=== PATIENT | male | born 1970 | race Caucasian/White ===

== ENCOUNTER 2019-04-27 08:41 | Emergency (ER) | payer BC ==
--- NOTE | 2019-04-27 08:50 | ED ---
HPI Chest Pain - HPI Summary HPI Summary: 48-year-old male with no significant past medical history presents to the emergency department today complaining of near syncope while working out this morning. Patient states he has not worked out in a "long time" and after working out he felt lightheaded, nauseous, diaphoretic and feeling like he was going to pass out. Patient states he has mild right anterior chest pain which he attributes to muscle soreness rather than an TX. Patient states his father recently had a bypass for myocardial infarction. Patient states the previous week he has felt unwell and more fatigued than usual. Upon arrival to the ER patient feels much better and denies current chest pain. [id number] blood glucose done by EMS was 150. Patient has never had chest pain like this before. Patient denies recent recreational drug use or alcohol use. Patient denies fever, abdominal pain, rash, shortness of breath. Family history and surgical history noncontributory. - History of Current Complaint Time Seen by Provider: 04/27/19 08:43 Hx Obtained From: Patient Timing: Intermittent Initial Severity: Moderate Current Severity: Moderate Chest Pain Location: Right Anterior Chest Pain Radiates: No Character: Dull/Aching Aggravating Factor(s): Exertion Associated Signs and Symptoms: Positive: Chest Pain, Anxiety, Recent Stress, Weakness, Dizziness, Shortness of Breath, Lightheadedness, Diaphoresis, Nausea - Allergy/Home Medications Allergies/Adverse Reactions: Allergies Allergy/AdvReac Type Severity Reaction Status Date / Time Penicillins Allergy See Comment Verified 04/27/19 09:39 Home Medications: Home Medications Ibuprofen TAB* [Advil TAB*] 200 mg PO Q6H PRN 04/27/19 [History Confirmed ] Review of Systems Positive: Fatigue. Negative: Fever, Chills Eyes: Negative ENT: Negative Positive: Chest Pain. Negative: Palpitations Positive: Shortness Of Breath Positive: Nausea. Negative: Abdominal Pain, Vomiting, Diarrhea Genitourinary: Negative Positive: Myalgia Skin: Negative Neurological: Negative Psychological: Normal All Other Systems Reviewed And Are Negative: Yes Physical Exam Triage Information Reviewed: Yes Vital Signs Reviewed: Yes Appearance: Positive: Well-Appearing, No Pain Distress, Well-Nourished Skin: Positive: Warm, Skin Color Reflects Adequate Perfusion Eyes: Positive: EOMI, JACK ENT: Positive: Normal ENT inspection, Hearing grossly normal Respiratory/Lung Sounds: Positive: Clear to Auscultation, Breath Sounds Present Cardiovascular: Positive: RRR, S1, S2 Abdomen Description: Positive: Nontender, Soft Bowel Sounds: Positive: Present Musculoskeletal: Positive: Strength/ROM Intact Neurological: Positive: Sensory/Motor Intact, Alert, Oriented to Person Place, Time, Normal Gait, Speech Normal Psychiatric: Positive: Normal, Affect/Mood Appropriate AVPU Assessment: Alert Procedures - Sedation Patient Received Moderate/Deep Sedation with Procedure: No Diagnostics - Laboratory Result Diagrams: 04/27/19 08:51 04/27/19 08:51 Lab Statement: Any lab studies that have been ordered have been reviewed, and results considered in the medical decision making process. Chest Pain Course/Dx - Course Course Of Treatment: Patient was evaluated in the emergency department today for chest pain. Patient was seen and evaluated his vitals are stable. EKG was done promptly which shows normal sinus rhythm at a rate of [address]pm[address] No evidence of ST elevation or STEMI. There are T-wave inversions noted in lead 3. Normal axis. There are no prior EKGs done for comparison. Laboratory studies show no leukocytosis with a white blood cell count of 5.0. There are no significant electrolyte abnormalities. Lactic acid level 3.1 likely due to recent exercise the patient will be given IV hydration and this will be repeated. Initial troponin 0.00. Serial troponin 0.01 with repeated lactic acid 1.2. Patient is no evidence of myocardial infarction and his lactic acidosis was cleared with IV fluids. HEART score: 2. Lactic acidosis was likely caused by patient being status post workup. There appears to be no acute pathology requiring intervention at this time. Patient was discharged for further evaluation and management by his primary care provider. - Chest Pain Differential Diagnosis/HQI/PQRI: Acute TX, ACS, Angina, CHF - Diagnoses Provider Diagnoses: Chest pain, Dizziness Discharge ED - Sign-Out/Discharge Documenting (check all that apply): Patient Departure - Discharge Plan Condition: Stable Disposition: HOME Patient Education Materials: Chest Pain (ED), Near Syncope (ED) Referrals: Carson Angel MD [Primary Care Provider] - 3 Days Additional Instructions: You were seen in the ER today for chest pain and near syncope. Laboratory studies were done as well as an EKG that showed no evidence of acute pathology requiring intervention at this time. It appears you are not having any life- threatening disorder however cardiac origin of your symptoms cannot be ruled out. Please follow up with your primary care provider in 3 days for further evaluation and management. Return to activity as tolerated. Please return to the emergency department immediately if you develop any new or worsening symptoms. - Billing Disposition and Condition Condition: STABLE Disposition: Home - Attestation Statements Provider Attestation: I was available for consultation for this patient. I did not evaluate the patient or participate in any medical decision making or disposition decisions unless I am specifically named in the chart as having consulted on the patient. If I have consulted on the patient, please see my own ED note on the patient encounter. Alpa Irizarry MD
[2019-04-27 08:59] LABS: ABS Eosinophils 0.2 10^3/ul (0-0.6); ABS Lymphocytes 1.4 10^3/ul (1.0-4.8); ABS Monocytes 0.4 10^3/ul (0-0.8); Eosinophil % 4.5 %; Hematocrit 44 % (42-52); Hemoglobin 15.5 g/dL (14.0-18.0); Lymphocyte % 27.3 %; Mean Corpuscular HGB Conc 35 g/dL (31-36); Mean Corpuscular Hemoglobin 30 pg (27-31); Mean Corpuscular Volume 85 fL (80-94); Mean Platelet Volume 8.2 fL (7.4-10.4); Nucleated Red Blood Cells % 0.1; Platelet Count 186 10^3/uL (150-450); Red Blood Count 5.21 10^6 /uL (4.18-5.48); Red Cell Distribution Width 13 % (10-15)
[2019-04-27 09:18] LABS: Albumin 4.5 g/dL (3.2-5.2); BUN/Creatinine Ratio 16.8 (8-20); Calcium 8.9 mg/dL (8.6-10.3); EGFR African American 89.6 (>60); EGFR Non-African American 74.1 (>60); Globulin 2.2 g/dL (2-4); Magnesium 2.2 mg/dL (1.9-2.7); Potassium 4.2 mmol/L (3.5-5.0); Total Bilirubin 0.8 mg/dL (0.2-1.0); Total Protein 6.7 g/dL (6.4-8.9)
[2019-04-27] MEDS: Lactated Ringers 1000 ML Bag* 1,000 ML IV ONE ×2 (09:33→10:44)
[2019-04-27 10:59] LABS: Urine Appearance Clear; Urine Bilirubin Negative (Negative); Urine Blood Negative (Negative); Urine Color Straw; Urine Glucose Negative (Negative); Urine Ketones Trace (Negative); Urine Nitrite Negative (Negative); Urine Protein Negative (Negative); Urine Specific Gravity 1.008 (1.010-1.030); Urine Urobilinogen Negative (Negative)
[2019-04-27 12:27] VITALS: BP 122/70
== END 2019-04-27 12:48 | disposition home or self-care (01) ==
LOC: ED 08:41
DX: R07.9 Chest pain, unspecified (principal); R42 Dizziness and giddiness; Z88.0 Allergy status to penicillin
CPT/HCPCS: 36415; 71045; 80053; 81003; 83605; 83735; 84484; 85025; 93005; 96360; 96361; 99284